=== PATIENT | male | born 1955 | race Caucasian/White ===

== ENCOUNTER 2018-05-10 05:49 | Inpatient (IN) | payer OTHER ==
[2018-05-10] VITALS (11 sets, daily range): BP systolic 93–186; BP diastolic 59–115
--- NOTE | ~2018-05-10 | EKG ---
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
--- NOTE | ~2018-05-10 | EKG ---
[place], [place] ELECTROCARDIOGRAM REPORT NAME: AIDA ARANGO UNIT #: [id number] ROOM: [facility] DOCTOR: OZIEL DRAFT REPORT BIRTHDATE: [birth year] [facility] Test Date: 2018-05-10 Test Time: 12:20:18 Pat Name: AIDA ARANGO Department: Room: 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
--- NOTE | ~2018-05-10 | EKG ---
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
[2018-05-10] MEDS ORDERED: HYDR25T PO (06:02)
[2018-05-10 06:23] LABS: BASO # 0.1 10*3/uL (0.0-0.1); BASO % 0.8 % (0.0-1.0); EOS # 0.2 10*3/uL (0.0-0.4); EOS % 1.2 % (1.0-4.0); HEMATOCRIT 44.9 % (42.0-52.0); HEMOGLOBIN 15.2 g/dl (14.0-18.0); LYMPH # 1.9 10*3/uL (1.3-4.4); LYMPH % 14.5 % (27.0-41.0); MEAN CELL VOLUME 85.9 fl (80.0-94.0); MEAN CORPUSCULAR HGB 29.1 pg (27.0-31.0); MEAN CORPUSCULAR HGB CONC 33.9 g/dl (33.0-37.0); MEAN PLATELET VOLUME 10.1 fl (9.6-12.3); MONO # 0.9 10*3/uL (0.1-1.0); MONO % 6.9 % (3.0-9.0); NEUT # 10.1 10*3/uL (2.3-7.9); NEUT % 76.1 % (47.0-73.0); PLATELET COUNT AUTOMATED 351 10*3/uL (130-400); RED BLOOD COUNT 5.23 10*6/uL (4.50-5.90); RED CELL DISTRI WIDTH 12.4 % (0-14.5); WHITE BLOOD COUNT 13.3 10*3/uL (4.8-10.8)
[2018-05-10 06:39] LABS: ALBUMIN 4.2 gm/dl (3.1-4.5); ALKALINE PHOSPHATASE 67 U/L (45-117); BUN 7 mg/dl (7-24); CHLORIDE 97 mmol/L (98-107); CREATININE 1.23 mg/dL (0.70-1.30); SGOT/AST 34 IU/L (3-35); SGPT/ALT 32 U/L (12-78); SODIUM 135 mmol/L (136-145)
[2018-05-10 06:43] LABS: TROPONIN I 0.149 ng/ml (<0.045)
[2018-05-10 06:44] LABS: POTASSIUM 3.4 mmol/L (3.5-5.1)
[2018-05-10 06:46] LABS: ACT PARTIAL THROMBO TIME 24.6 SECONDS (20.8-31.5); INTERNATIONAL NORM RATIO 0.9 (2.0-3.5)
--- NOTE | 2018-05-10 07:28 | NUR ---
REPORT CALLED TO WOODROW JANE IN ICU
--- NOTE | 2018-05-10 07:30 | NUR ---
A 62, admitted to ICCU, under the services of NII Cabezas DO with a diagnosis of HTN EMERGENCY, NSTEMI. Chief complaint is ELEVATED BP AND PAIN IN HIS SHOULDERS. Patient arrived via stretcher from ER. Monitor applied. Initial assessment completed. Vital signs taken and recorded. NII CABEZAS DO notified of admission to the unit. Orders received. See assessment for past medical history, medications and allergies. Patient and/or family oriented to unit. [facility] ICCU visitation policy reviewed. Clothing/patient valuable form completed. NEVIN SOLORIO
--- NOTE | 2018-05-10 07:32 | NUR ---
REFUSES TO WEAR GOWN.
--- NOTE | 2018-05-10 09:18 | NUR ---
PT MEDICATED WITH TYLENOL AT HIS REQUEST FOR C/O SORE THROAT PAIN.
--- NOTE | 2018-05-10 10:15 | NUR ---
DR GONZALEZ MADE AWARE OF PT'S ELEVATED TROPONIN OF 1.340. I ALSO LEFT A MESSAGE WITH [facility] STAFF TO MAKE DR VALDOVINOS AWARE OF TROPONIN RESULTS ALSO.
[2018-05-10 12:39] LABS: CHOLESTEROL 248 mg/dL (<200); HDL CHOLESTEROL 45 mg/dl (40-60); LDL CHOLESTEROL 163 mg/dL (9-159); TRIGLYCERIDES 200 mg/dl (<150); VLDL CHOLESTEROL 40 mg/dL (6-40)
--- NOTE | 2018-05-10 12:48 | NUR ---
DR HE ,WHO IS WORKING WITH CARDIOLOGY DR VALDOVINOS TODAY, WAS NOTIFIED OF TROPONIN LEVEL OF 2.35.
--- NOTE | 2018-05-10 13:59 | NUR ---
Ptt 38.6. Heparin gtt increased to 14units/kg/hr per protocol.
--- NOTE | 2018-05-10 15:39 | NUR ---
DR GONZALEZ IN ICCU AND AWARE OF PT'S OF SBP IN THE 90'S AND HEART RATE 50'S. WILL CONTINUE TO MONITOR LOPRESSOR WAS STARTED THIS AM.
[2018-05-10] MEDS ORDERED: ASPIRIN CHEWABL81 M1 PO (17:38)
[2018-05-10] MEDS ORDERED: ATORVASTATIN CA80 M1 PO (17:38)
[2018-05-10] MEDS ORDERED: LOPRESSOR25 MG PO (17:38)
[2018-05-10 20:21] LABS: BUN 10 mg/dl (7-24); CHLORIDE 104 mmol/L (98-107); POTASSIUM 4.1 mmol/L (3.5-5.1); SODIUM 140 mmol/L (136-145)
--- NOTE | 2018-05-10 21:28 | NUR ---
LOPRESSOR HELD AT THIS TIME. HEART RATE 55 PER CM.
[2018-05-11] VITALS: BP 108/56
[2018-05-11 04:00] VITALS: BP 112/56
[2018-05-11 04:45] LABS: BASO # 0.1 10*3/uL (0.0-0.1); BASO % 0.9 % (0.0-1.0); EOS # 0.4 10*3/uL (0.0-0.4); EOS % 3.2 % (1.0-4.0); HEMATOCRIT 41.6 % (42.0-52.0); HEMOGLOBIN 13.6 g/dl (14.0-18.0); LYMPH % 26.3 % (27.0-41.0); MEAN CELL VOLUME 87.2 fl (80.0-94.0); MEAN CORPUSCULAR HGB 28.5 pg (27.0-31.0); MEAN CORPUSCULAR HGB CONC 32.7 g/dl (33.0-37.0); MEAN PLATELET VOLUME 10.3 fl (9.6-12.3); MONO # 1.2 10*3/uL (0.1-1.0); MONO % 10.4 % (3.0-9.0); NEUT # 6.6 10*3/uL (2.3-7.9); NEUT % 58.8 % (47.0-73.0); PLATELET COUNT AUTOMATED 300 10*3/uL (130-400); RED BLOOD COUNT 4.77 10*6/uL (4.50-5.90); RED CELL DISTRI WIDTH 12.9 % (0-14.5); WHITE BLOOD COUNT 11.2 10*3/uL (4.8-10.8)
[2018-05-11 05:06] LABS: ALBUMIN 3.4 gm/dl (3.1-4.5); BUN 11 mg/dl (7-24); CHLORIDE 106 mmol/L (98-107); CREATININE 1.14 mg/dL (0.70-1.30); PHOSPHOROUS 2.8 mg/dL (2.5-4.9); SGOT/AST 26 IU/L (3-35); SGPT/ALT 28 U/L (12-78); SODIUM 139 mmol/L (136-145); TOTAL PROTEIN 7.4 gm/dL (6.4-8.2)
[2018-05-11 05:13] LABS: ALKALINE PHOSPHATASE 55 U/L (45-117); FREE T4 1.14 ng/dl (0.76-1.46); THYROID STIM HORMONE (HS) 0.949 uIU/ml (0.358-4.75)
--- NOTE | 2018-05-11 06:20 | NUR ---
PATIENT TRANSFERRED TO [facility] VIA [facility]. HEPARIN GTT INFUSING AT 16U. ALL PERSONAL BELONGINGS SENT WITH PATIENT. TRANSFER PACKET GIVEN TO AMBULANCE.
[2018-05-11 08:11] LABS: VITAMIN D, 25-HYDROXY 41.6 ng/mL (30-100)
== END 2018-05-11 06:20 | disposition short-term general hospital (02) | DRG 281 ==
LOC: ED 05:49 → ICCU 06:51 → EDHOLD 06:51 → ICCU 07:18
PROVIDERS: Internal Medicine; Student in an Organized Health Care Education/Training Program; ADMIT Internal Medicine
DX: I21.4 Non-ST elevation (NSTEMI) myocardial infarction (principal); I16.1 Hypertensive emergency; K51.919 Ulcerative colitis, unspecified with unspecified complications; E87.1 Hypo-osmolality and hyponatremia; E83.41 Hypermagnesemia; M25.511 Pain in right shoulder; M25.512 Pain in left shoulder; E87.6 Hypokalemia; E87.8 Other disorders of electrolyte and fluid balance, not elsewhere classified; D72.825 Bandemia; I10 Essential (primary) hypertension; Z87.891 Personal history of nicotine dependence; Z90.49 Acquired absence of other specified parts of digestive tract; Z80.42 Family history of malignant neoplasm of prostate; Z91.030 Bee allergy status; Z71.6 Tobacco abuse counseling